=== PATIENT | female | born 1990 | race African-American/Black ===

== ENCOUNTER 2020-12-26 18:51 | Emergency (ER) | payer OTHER ==
--- NOTE | 2020-12-26 20:06 | NUR ---
pt presents to ed with fevers and nausea. pt stated she was started feeling bad first 3 days ago and then everyone (, herself, and baby) all started having fevers 2 days ago. pt states she has a headache and a runny nose. pt in gown and resting on gurney with baby.
--- NOTE | 2020-12-26 20:45 | NUR ---
ERP AT BEDSIDE
[2020-12-26 21:00] VITALS: BP 100/65
--- NOTE | 2020-12-26 21:05 | NUR ---
PT RESTING ON GURNEY, DENIES NEEDS AT THIS TIME.
[2020-12-26 21:49] LABS: RAPID INFLUENZA A Negative (Negative); RAPID INFLUENZA B Negative (Negative)
--- NOTE | 2020-12-26 22:41 | NUR ---
THIS RN WENT TO GIVE D/C INSTRUCTIONS, PT HAD ALREADY LEFT. NO BELONGINGS LEFT IN ROOM AND NO ONE IN THE BATHROOMS. THIS RN UNABLE TO TAKE ANOTHER SET OF VITALS BEFORE D/C.
== END 2020-12-26 22:44 | disposition home or self-care (01) ==
LOC: ED 21:13
DX: U07.1 COVID-19 (principal); B34.9 Viral infection, unspecified; R00.0 Tachycardia, unspecified
CPT/HCPCS: 87400; 99283; U0003; U0005

== ENCOUNTER 2021-01-20 10:44 | Emergency (ER) | payer OTHER ==
[~2021-01-20] VITALS: Ht 167.6 cm; Wt 82.1 kg
[2021-01-20 12:21] LABS: BASOPHILS % (AUTO) 0 % (0-1); EOSINOPHILS % (AUTO) 1 % (1-7); LYMPHOCYTES % (AUTO) 44 % (22-44); MEAN CORPUSCULAR HEMOGLOBIN 27.4 pg (27.0-34.8); MEAN CORPUSCULAR HGB CONC 32.9 g/dL (32.4-35.8); MEAN PLATELET VOLUME 10.1 fL (7.4-10.4); MONOCYTES % (AUTO) 7 % (2-9); NEUTROPHILS % (AUTO) 47 % (42-75); PLATELET COUNT 235 x10^3/uL (130-400); RED BLOOD COUNT 4.39 x10^6/uL (3.82-5.3); RED CELL DISTRIBUTION WIDTH 14.1 % (9.6-15.2)
[2021-01-20 12:32] LABS: CHLORIDE 109 mmol/L (98-107)
[2021-01-20 12:44] LABS: ALANINE AMINOTRANSFERASE 19 U/L (12-78); ALBUMIN 3.6 g/dL (3.4-5.0); ALKALINE PHOSPHATASE 73 U/L (45-117); ANION GAP 4 mmol/L (5-15); BILIRUBIN,TOTAL 0.2 mg/dL (0.2-1.0); CALCIUM 9.4 mg/dL (8.5-10.1); CREATININE 0.68 mg/dL (0.55-1.02); TOTAL PROTEIN 7.5 g/dL (6.4-8.2); TROPONIN I < 0.015 ng/mL (0.000-0.045)
--- NOTE | 2021-01-20 12:45 | NUR ---
pt walked back to this rns room from [facility] at this time. Pt resting on gurney, changed into gown, appears comfortable. placed on spo2/bp/ecg monitoring. bed in lowest, rails engaged, call light on lap, wctm. pt ua obtained and sent to lab. pt reports chest pain/epigastric pain since thursday that worsens with drinking, no significant past medical history, pt pulses 2+, reports feeling weaker than usual/fatigue and nausea with chest pain, gross neuro intact. awaiting additional orders at this time.
[2021-01-20 13:03] LABS: MICROSCOPIC NOT IND
[2021-01-20] MEDS ORDERED: MAALOX/HYOSCYAMINE/LIDOCAINE 45 ML BTL ONE (13:55)
[2021-01-20] MEDS ORDERED: MAALOX/HYOSCYAMINE/LIDOCAINE 45 ML BTL PO ONE (14:00)
--- NOTE | 2021-01-20 14:00 | NUR ---
PT NAD, RESTING ON GURNEY, AWAITING UA RESULTS. MEDICATED PER MAR, DISCOMFORT DECREASED, VSS, WCTM. BED IN LOWEST, RAILS ENGAGED, CALL LIGHT ON LAP, WCTM.
[2021-01-20 14:27] VITALS: BP 136/74
--- NOTE | 2021-01-20 15:00 | NUR ---
Patient given discharge instructions and they have confirmed that they understand the instructions. Patient ambulatory with steady gait. NAD, all questions answered appropriately, denies additional needs at this time. No personal belongings left in room after discharge.
== END 2021-01-20 15:18 | disposition home or self-care (01) ==
LOC: ED 12:51
DX: K20.90 Esophagitis, unspecified without bleeding (principal); R07.89 Other chest pain
CPT/HCPCS: 36415; 71046; 80053; 81003; 83690; 84484; 84703; 85025; 93005; 99285